=== PATIENT | male | born 1935 | race African-American/Black ===

== ENCOUNTER 2019-09-28 18:53 | Inpatient (IN) | payer BC, MEDICAID ==
[~2019-09-28] VITALS: Ht 167.6 cm; Wt 82.6 kg
[~2019-09-28 18:53] MED LIST: RANI-655 PO
[2019-09-28] MEDS ORDERED: SODIUM CHLORIDE 0.9% 1,000 ML IV ONE (22:45)
[2019-09-28] MEDS ORDERED: ONDANSETRON HCL 4MG/2ML INJ IV STA (22:45)
[2019-09-28] MEDS ORDERED: MORPHINE SULFATE 4 MG/ML CPJ (NOT FOR IM USE) IV STA (22:45)
[2019-09-28] MEDS ORDERED: AZITHROMYCIN 500 MG in DEXT 5% WATER 250 ML IV ONE (23:15)
[2019-09-28] MEDS ORDERED: CEFTRIAXONE 1 G PREMIX 50 ML IV ONE (23:15)
[2019-09-28] MEDS ORDERED: ACETAMINOPHEN 325MG TABLET PO ONE (23:30)
[2019-09-29 00:24] LABS: HEMATOCRIT. 38.1 % (42.0-52.0); HEMOGLOBIN. 12.5 g/dL (14.0-18.0); MEAN CORPUSCULAR HEMOGLOBIN 28.1 pg (28.0-32.0); MEAN CORPUSCULAR VOLUME 85.3 fL (80.0-94.0); MEAN PLATELET VOLUME 9.3 fl (7.4-10.4); PLATELET 175 x1000/uL (130-400); RED BLOOD CELL COUNT 4.46 mill/uL (4.7-6.1); RED CELL DISTRIBUTION WIDTH 14.3 % (11.6-14.6)
[2019-09-29 00:26] LABS: CHLORIDE 104 mEq/L (98-107)
[2019-09-29 00:31] LABS: INR 1.1; PARTIAL THROMBOPLASTIN TIME 31.6 sec (23.4-31.0); PROTHROMBIN TIME 11.6 sec (9.6-11.0)
[2019-09-29 00:44] LABS: CLARITY URINE CLEAR (CLEAR); COLOR URINE YELLOW (YELLOW); KETONES URINE NEGATIVE (NEGATIVE); LEUKOCYTE ESTERASE URINE 1+ (NEGATIVE); NITRITE URINE NEGATIVE (NEGATIVE); OCCULT BLOOD URINE 2+ (NEGATIVE); PROTEIN URINE NEGATIVE (NEGATIVE); SPECIFIC GRAVITY URINE 1.014 (1.005-1.030); UROBILINOGEN URINE 0.2 E.U./dL (0.2-1.0)
[2019-09-29 04:46] LABS: PLATELET ESTIMATE NORMAL
[2019-09-29] MEDS ORDERED: ONDANSETRON HCL 4MG/2ML INJ IV PRN (13:15)
[2019-09-29] MEDS ORDERED: DOCUSATE SODIUM 100MG CAPSULE PO PRN (13:15)
[2019-09-29] MEDS ORDERED: CLONIDINE 0.1MG TABLET PO PRN (13:15)
[2019-09-29] MEDS ORDERED: SODIUM CHLORIDE 0.9% 1,000 ML IV ONE (13:15)
[2019-09-29] MEDS ORDERED: ACETAMINOPHEN 325MG TABLET PO PRN (13:15)
[2019-09-29 13:30] VITALS: BP 160/100
[2019-09-29] MEDS ORDERED: ENOXAPARIN 30MG/0.3ML SYR SUBCUT SCH (14:00)
[2019-09-29 15:13] LABS: HEMOGLOBIN. 12.6 g/dL (14.0-18.0); MEAN CORPUSCULAR HEMOGLOBIN 28.6 pg (28.0-32.0); MEAN CORPUSCULAR VOLUME 85.7 fL (80.0-94.0); MEAN PLATELET VOLUME 8.6 fl (7.4-10.4); PLATELET 184 x1000/uL (130-400); RED BLOOD CELL COUNT 4.43 mill/uL (4.7-6.1); RED CELL DISTRIBUTION WIDTH 13.5 % (11.6-14.6)
[2019-09-29 16:00] VITALS: BP 168/100
[2019-09-29 16:06] LABS: PHOSPHORUS 4.4 mg/dL (2.5-4.9)
[2019-09-29 16:11] LABS: PLATELET ESTIMATE NORMAL
[2019-09-29] MEDS ORDERED: HYDROCODONE/ACETAMINOPHEN 5/325MG TABLET PO PRN (17:45)
[2019-09-29] MEDS ORDERED: MORPHINE SULFATE 2 MG/ML CPJ (NOT FOR IM USE) IV NR (17:45)
[2019-09-29] MEDS ORDERED: HYDROMORPHONE HCL/PF 2MG/ML CPJ IV PRN (18:30)
[2019-09-29] MEDS: DEXT 5%/0.45% NACL 1000ML 1,000 ML IV SCH ×2 (18:46→23:51)
[2019-09-29 20:00] VITALS: BP 147/67
[2019-09-29] MEDS ORDERED: HYDRALAZINE HCL 50MG TABLET PO SCH (22:00)
[2019-09-30] VITALS: BP 160/79
[2019-09-30 00:50] VITALS: BP 160/79
== END 2019-09-30 01:35 | disposition short-term general hospital (02) | DRG 694 ==
LOC: ER 19:01 → 7WST 09-29 01:06 → ENRESERV 09-29 11:48
PROVIDERS: ADMIT Ophthalmology; ATTEND Ophthalmology
DX: N13.30 Unspecified hydronephrosis (principal); N17.9 Acute kidney failure, unspecified; N32.0 Bladder-neck obstruction; E11.22 Type 2 diabetes mellitus with diabetic chronic kidney disease; E11.51 Type 2 diabetes mellitus with diabetic peripheral angiopathy without gangrene; I25.10 Atherosclerotic heart disease of native coronary artery without angina pectoris; Z20.828 Contact with and (suspected) exposure to other viral communicable diseases; N18.3 Chronic kidney disease, stage 3 (moderate); I13.10 Hypertensive heart and chronic kidney disease without heart failure, with stage 1 through stage 4 chronic kidney disease, or unspecified chronic kidney disease; N40.0 Benign prostatic hyperplasia without lower urinary tract symptoms; G47.33 Obstructive sleep apnea (adult) (pediatric); Z95.1 Presence of aortocoronary bypass graft; Z79.899 Other long term (current) drug therapy
CPT/HCPCS: 36415; 71045; 74176; 80048; 80053; 81003; 82962; 83605; 83735; 83880; 84100; 84153; 84484; 85025; 93005; 96365; 99285; J0456; J0696; J1170; J1650; J2270; J2405; J7030; J7060; G0103; U0003-CS